=== PATIENT | female | born 1960 | race African-American/Black ===

== ENCOUNTER 2017-08-15 07:10 | Day surgery (SDC) | payer MEDICAID ==
[2017-08-12 11:31] LABS: HEMATOCRIT 35.7 % (36.0-48.0); HEMOGLOBIN 11.3 g/dL (12-16); MCH 28.5 pg (26.0-34.0); MCHC 31.7 g/dL (31.0-37.0); MCV 89.9 fL (80.0-100.0); MEAN PLATELET VOLUME 13.6 fL (7.4-10.4); RBC 3.97 10x6/uL (4.00-5.40); RDW 15.4 % (11.5-14.5); WBC 6.4 10x3/uL (4.8-10.8)
[~2017-08-15] VITALS: Ht 167.6 cm; Wt 59.0 kg
[2017-08-15] MEDS ORDERED: LEVOXYL50 MCG PO (07:31)
[2017-08-15] MEDS ORDERED: LIPITOR10 MG PO (07:31)
[2017-08-15] MEDS ORDERED: NAMENDA10 MG PO (07:32)
[2017-08-15] MEDS ORDERED: PEPCID20 MG PO (07:32)
[2017-08-15] MEDS ORDERED: ACETAMINOPHEN325 MG PO (07:33)
[2017-08-15] MEDS ORDERED: VITAMIN D5000 UNIT PO (07:33)
[2017-08-15] MEDS ORDERED: ZOFRAN4 MG PO (07:34)
[2017-08-15 07:46] VITALS: BP 131/78; Ht 167.6 cm; Wt 59.0 kg
== END 2017-08-15 13:30 ==
LOC: D.OPS 07:10 → D.PAN 09:35 → D.OPS 09:35 → D.PAN 09:45 → D.OPS 09:45
PROVIDERS: Anesthesiology
DX: R13.10 Dysphagia, unspecified (principal); Z01.812 Encounter for preprocedural laboratory examination

== ENCOUNTER → 2017-10-24 06:26 | Outpatient (CLI) | payer MEDICAID ==
[2017-08-15 07:46] VITALS: BMI 21.0
--- NOTE | ~2017-10-24 | HEMODYNAMI ---
PATIENT:VIOLET ALBERTO MEDICAL RECORD: [id number] : 60 [id number] ADMISSION DATE: 10/24/17 Generatedon:10/24/20178:39 Patient name: VIOLET ALBERTO Patient #: [id number] SSN: : 1960 Date of study: 10/24/2017 Page: Of Hemodynamic Procedure Report Patient Data Patient Demographics Procedure consent was obtained First Name: VIOLET Gender: Female Last Name: REMY : 1960 Patient #: [id number] Age: 57 year(s) Race: Black Additional ID: [id number] Contact details Address: [address] [place] [address] [address]IVE State: [place] City: [place] Zip code: [address] Past Medical History Allergies: No known allergies Admission Admission Data Admission Date: 10/24/2017 Admission Time: 6:26 Procedure Procedure Types Cath Procedure Peripheral Cath Diagnostic Procedure Miscellaneous Procedure Description Procedure Date Procedure Date: 10/24/2017 Procedure Start Time: 8:25 Procedure Staff Name Function Tony Mejia MD Performing Physician Jim Carbone RT Monitor Kerline Jordan RT Scrub Staci Tobar RN Nurse Procedure Data Cath Procedure Fluoroscopy Diagnostic fluoroscopy Total fluoroscopy Time: 0.9 time: 0.9 min min Diagnostic fluoroscopy Total fluoroscopy dose: 6 dose: 6 mGy mGy Contrast Material Contrast Material Type Amount (ml) Isovue 300 25 Hemodynamics Rest Pre Cath Intra NCS Post Cath Procedure Log Time Note 7:58:24 Jim Carbone RT (R) (CV) sent for patient. Start room use. 8:07:29 Time tracking: Regular hours (M-F 7:00 - 5:00) 8:07:36 Patient received from Other to IR Alert and oriented. Tansferred to table in Supine position. 8:07:40 Correct patient and procedure confirmed by team. 8:07:43 Signed procedure consent form obtained from guardian. 8:07:54 Patient allergic to No known allergies 8:08:11 Unable to provide pre-op teaching due to educational barrier. unable to communicate 8:08:24 Use device set IR Diagnostic 8:08:27 Sterile Angiographic Pack opened to sterile field. 8:08:28 Bag Decanter () opened to sterile field. 8:24:41 Physician arrived 8:24:42 --------ALL STOP TIME OUT------ 8:24:43 Final Timeout: patient, procedure, and site verified with staff and physician. All members of the team are in agreement. 8:24:50 Left abdomen area was prepped with chlora-prep and draped in sterile fashion 8:25:10 Left abdomen site verified by team. 8:25:16 Sedation plan: Local Anesthetic Medication:Lidocaine 8:25:25 Procedure started. 8:25:25 Full Disclosure recording started 8:25:45 Local anesthetic to Abdominal area with Lidocaine 1% by Tony Mejia MD.INITIAL ACCESS ONLY 8:30:54 [facility] .035 145 glide wire ([id number]) opened to sterile field. 8:32:04 GASTRO-ENTERIC 22Fr Feeding Tube ([id number]) opened to sterile field. 8:37:20 Procedure ended.(Physican Out) 8:38:15 Fluoroscopy time 00.90 minutes. 8:38:19 Fluoroscopy dose: 6 mGy 8:38:19 Flurop Dose total: 6 8:38:29 Contrast amount:Isovue 300 25ml. 8:38:31 Sharps counted by scrub and verified by R.N. 8:38:32 Insertion/operative site no bleeding no hematoma. 8:38:47 Post Abdominal area:stable 8:38:52 Post procedure instruction explained to patient.Patient verbalizes understanding. 8:38:53 Procedure and supply charges have been captured, reviewed, submitted and are correct. 8:39:11 Report given to Other. 8:39:17 Patient transfered to Other with Wheelchair. Device Usage Item Name Manufacture Quantity Catalog Hospital Part Current Minim al Lot# / Number Charge Number Stock Stock Serial# Code Sterile Cardinal 1 [id number] 5 Angiographic Health Pack Bag Decanter Microtek 1 [id number] 46268 191844 5 () [employer]. [facility] 1 [id number] 069880 [id number] 5 [id number] .035 145 glide wire (S66655) GASTRO-ENTERIC [place] 1 0210-22 587266 338246 5 22Fr [employer] Tube (239494) Signature Audit [place] Stage Time Signature Unsigned Intra-Procedure 10/24/2017 Jim 8:39:34 AM Raf RT (R) (CV) Signatures Monitor : Jim Signature : Raf RT Date : Time : [address] [place] [address]
[~2017-10-24 06:26] MED LIST: ACETAMINOPHEN325 MG PO; LEVOXYL50 MCG PO; LIPITOR10 MG PO; NAMENDA10 MG PO; PEPCID20 MG PO; VITAMIN D5000 UNIT PO; ZOFRAN4 MG PO
== END | disposition home or self-care (01) ==
LOC: D.SP 06:26 → D.RAD 08:00
DX: K94.23 Gastrostomy malfunction (principal); Z01.812 Encounter for preprocedural laboratory examination

== ENCOUNTER → 2018-02-22 10:52 | Outpatient (CLI) | payer MEDICAID ==
[2017-08-15 07:46] VITALS: BMI 21.0
--- NOTE | ~2018-02-22 | HEMODYNAMI ---
PATIENT:VIOLET ALBERTO MEDICAL RECORD: [id number] : 60 [id number] ADMISSION DATE: 02/22/18 Generatedon:02/22/201814:04 Patient name: VIOLET ALBERTO Patient #: [id number] SSN: : 1960 Date of study: 02/22/2018 Page: Of Hemodynamic Procedure Report Patient Data Patient Demographics Procedure consent was obtained First Name: VIOLET Gender: Female Last Name: REMY : 1960 Patient #: [id number] Age: 57 year(s) Race: Black Additional ID: [id number] Contact details Address: [address] [place] [address] [address]IVE State: [place] City: [place] Zip code: [address] Past Medical History Allergies: No known allergies Admission Admission Data Admission Date: 02/22/2018 Admission Time: 10:52 Procedure Procedure Types Cath Procedure Peripheral Cath Diagnostic Procedure Gastric G Tube Replacement Procedure Description Procedure Date Procedure Date: 02/22/2018 Procedure Start Time: 13:41 Procedure Staff Name Function Tony Mejia MD Performing Physician Staci Tobar RN Nurse Deisy Moon RT Monitor Jim MCLEOD Scrub Procedure Data Cath Procedure Fluoroscopy Diagnostic fluoroscopy Total fluoroscopy Time: 0.3 time: 0.3 min min Diagnostic fluoroscopy Total fluoroscopy dose: 2 dose: 2 mGy mGy Contrast Material Contrast Material Type Amount (ml) Isovue 300 10 Hemodynamics Rest Pre Cath Intra NCS Post Cath Procedure Log Time Note 13:14:27 Jim Carbone RT (R) (CV) sent for patient. Start room use. 13:14:39 Time tracking: Regular hours (M-F 7:00 - 5:00) 13:14:45 Patient received from Other to IR Alert and oriented. Tansferred to table in Supine position. 13:14:50 Correct patient and procedure confirmed by team. 13:14:53 Signed procedure consent form obtained from guardian. 13:14:57 Full Disclosure recording started 13:14:57 - 13:15:41 Unable to provide pre-op teaching due to educational barrier. PT HAS DOWNS SYNDROME 13:15:58 Patient allergic to No known allergies 13:16:12 Left abdomen area was prepped with chlora-prep and draped in sterile fashion 13:16:18 Use device set IR Diagnostic 13:16:20 Tegaderm 4 x 4 (1626W) opened to sterile field. 13:16:21 Sterile Angiographic Pack opened to sterile field. 13:16:22 Bag Decanter () opened to sterile field. 13:40:14 GASTROSTOMY 20Fr Tri-Funnel Tube (966970) opened to sterile field. 13:40:20 - 13:40:24 Physician arrived 13:40:25 --------ALL STOP TIME OUT------ 13:40:26 Final Timeout: patient, procedure, and site verified with staff and physician. All members of the team are in agreement. 13:41:06 Procedure started. 13:41:26 Local anesthetic to Abdominal area with Lidocaine 1% by Tony Mejia MD.INITIAL ACCESS ONLY 13:42:18 [facility] .035 145 glide wire (U47939) opened to sterile field. 13:46:10 20FR TRI FUNNEL GASTROSTOMY TUBE PLACED 13:50:23 Procedure ended.(Physican Out) 14:03:36 Fluoroscopy time 00.30 minutes. 14:03:40 Fluoroscopy dose: 2 mGy 14:03:40 Flurop Dose total: 2 14:04:01 Contrast amount:Isovue 300 10ml. 14:04:04 Procedure and supply charges have been captured, reviewed, submitted an d are correct. 14:04:26 Patient transfered to Other with Wheelchair. Device Usage Item Name Manufacture Quantity Catalog Hospital Part Current Minimal Lot# / Number Charge Number Stock Stock Serial# Code Tegaderm 4 x 3M 1 [id number] 4 (1626W) Sterile Cardinal 1 [id number] 680416 070839 5 Angiographic Health Pack Bag Decanter Microtek 1 2001S 150495 93816 453324 5 (2001S) [employer] GASTROSTOMY Bard 1 [id number] 160733 805077 5 20Fr Tri-Funnel Tube (660811) [facility] 1 [id number] 907139 102604 851367 5 [id number] .035 145 glide wire (M49611) Signature Audit [place] Stage Time Signature Unsigned Intra-Procedure 02/22/2018 Deisy Moon 2:04:44 PM RT(R) Signatures Monitor : Deisy Moon RT Signature : Date : Time : [address] [place] [address]
== END | disposition home or self-care (01) ==
LOC: D.RAD 10:52
DX: Z93.1 Gastrostomy status (principal)

== ENCOUNTER → 2018-04-12 08:15 | Outpatient (CLI) | payer MEDICAID ==
[2017-08-15 07:46] VITALS: BMI 21.0
--- NOTE | ~2018-04-12 | HEMODYNAMI ---
PATIENT:VIOLET ALBERTO MEDICAL RECORD: [id number] : 60 [id number] ADMISSION DATE: 04/12/18 Generatedon:04/12/20189:31 Patient name: VIOLET ALBERTO Patient #: [id number] SSN: : 1960 Date of study: 04/12/2018 Page: Of Hemodynamic Procedure Report Patient Data Patient Demographics Procedure consent was obtained First Name: VIOLET Gender: Female Last Name: REMY : 1960 Patient #: [id number] Age: 58 year(s) Race: Black Additional ID: [id number] Contact details Address: [address] [place] [address] [address]IVE State: [place] City: [place] Zip code: [address] Past Medical History Allergies: No known allergies Admission Admission Data Admission Date: 04/12/2018 Admission Time: 8:15 Procedure Procedure Types Cath Procedure Peripheral Cath Diagnostic Procedure Gastric G Tube Replacement Procedure Description Procedure Date Procedure Date: 04/12/2018 Procedure Start Time: 9:19 Procedure Staff Name Function Suzan Rodríguez MD Ordering physician Suzan Rodríguez MD Interpreting welder and fitter Yanelis Sosa MD Performing Physician Kerline Fuentes Monitor Nohemy Renae RN Nurse Jim Carbone RT Scrub Procedure Data Cath Procedure Fluoroscopy Diagnostic fluoroscopy Total fluoroscopy Time: 1 time: 1 min min Diagnostic fluoroscopy Total fluoroscopy dose: 4 dose: 4 mGy mGy Contrast Material Contrast Material Type Amount (ml) Isovue 300 20 Hemodynamics Rest Pre Cath Intra NCS Post Cath Procedure Log Time Note 8:56:57 Kerline Fuentes sent for patient. Start room use. 8:57:01 Time tracking: Regular hours (M-F 7:00 - 5:00) 8:57:28 Plan of Care:Hemodynamics will remain stable., Cardiac rhythm will remain stable., Comfort level will be maintained., Respiratory function will remain adequate., Patient/ family verbilizes understanding of procedure., Procedure tolerated without complication., Recovers from procedure without complications.. 8:57:50 Patient received from Other to IR Alert and oriented. Tansferred to table in Supine position. Due to patient condition she has guardian care. 8:57:59 Warm blankets applied for patient comfort. 8:58:33 Correct patient and procedure confirmed by team. 8:58:43 Signed procedure consent form obtained from verbally from Kat Alvarado her cousin on phone2@[phone]. 8:58:53 Full Disclosure recording started 8:58:55 9:12:14 Left Abdomen was prepped with chlora-prep and draped in sterile fashion. 9:12:17 Alarms reviewed. 9:12:18 Sharps counted by scrub and verified. 9:15:54 Use device set IR Diagnostic 9:15:58 Bag Decanter (2002S) opened to sterile field. 9:15:59 Sterile Angiographic Pack opened to sterile field. 9:17:41 Physician arrived 9:17:43 --------ALL STOP TIME OUT------ 9:17:45 Final Timeout: patient, procedure, and site verified with staff and physician. All members of the team are in agreement. 9:17:58 Left abdomen site verified by team. 9:18:09 Sedation plan: None Medication:Lidocaine 9:19:35 Procedure started. 9:20:42 GLIDE WIRE .035 180CM STRAIGHT (KY3479) opened to sterile field. 9:21:55 The glidewire is inserted into the existing tube. 9:23:38 GASTROSTOMY 20Fr Tri-Funnel Tube (963272) opened to sterile field. 9:24:03 A new 20 Taiwanese gastrostomy tube is replaced into the stomach. Contrast is used to verify placement. 9:25:19 Procedure ended.(Physican Out) 9:25:47 Fluoroscopy time 01.00 minutes. 9:25:58 Fluoroscopy dose: 4 mGy 9:25:58 Flurop Dose total: 4 9:26:21 Contrast amount:Isovue 300 20ml. 9:26:45 Sharps counted by scrub and verified. 9:27:18 Post Abdominal area:unchanged 9:27:30 Patient needs reinforcement of post procedure teaching. 9:29:26 Procedure and supply charges have been captured, reviewed, submitted and are correct. 9:30:11 See physician's report for complete and final results. 9:30:18 Patient transfered to Other with Wheelchair. Device Usage Item Name Manufacture Quantity Catalog Hospital Part Current Minimal Lot# / Number Charge Number Stock Stock Serial# Code Bag Decanter Microtek 1 [id number] 5 () [employer] Inc[employer] Sterile Cardinal 1 [id number] 264016 218826 5 Angiographic Health Pack GLIDE WIRE Terumo 1 [id number] 982831 895367 5 .035 180CM STRAIGHT (EX4955) GASTROSTOMY Bard 1 [id number] 496746 220032 5 20Fr Tri-Funnel Tube (839398) Signature Audit [place] Stage Time Signature Unsigned Intra-Procedure 04/12/2018 Kerline 9:30:58 AM Gina Signatures Monitor : Kerline Signature : Gina Date : Time : [address] [address]
== END | disposition home or self-care (01) ==
LOC: D.SP 08:15 → D.RAD 09:00 → D.SP 09:00
PROVIDERS: ATTEND Family Medicine
DX: K94.23 Gastrostomy malfunction (principal); K21.9 Gastro-esophageal reflux disease without esophagitis; Z01.812 Encounter for preprocedural laboratory examination